=== PATIENT | male | born 1955 | race Two or more races ===

== ENCOUNTER 2016-11-09 20:57 | Emergency (ER) | payer BC ==
[~2016-11-09] VITALS: Ht 188 cm; Wt 77.1 kg
[2016-11-09 21:06] VITALS: BP 128/86
[2016-11-09] MEDS ORDERED: TDAP [DIPH/PERTUSSIS/TET] 0.5 ML VIAL IM ONE (21:34)
[2016-11-09] MEDS: TDAP [DIPH/PERTUSSIS/TET] 0.5 ML VIAL IM ONE (21:42)
[2016-11-09] MEDS: LIDOCAINE 1%-EPI 1:100,000 20 ML VIAL TP ONE (21:43)
== END 2016-11-09 22:05 | disposition home or self-care (01) ==
LOC: ER 21:03
DX: S61.411A Laceration without foreign body of right hand, initial encounter (principal); W25.XXXA Contact with sharp glass, initial encounter; Y93.G1 Activity, food preparation and clean up; Y92.89 Other specified places as the place of occurrence of the external cause; Y99.8 Other external cause status
CPT/HCPCS: 90715; A4606; A6402; Z7610

== ENCOUNTER 2019-04-22 19:53 | Emergency (ER) | payer MEDICARE, BC ==
[~2019-04-22] VITALS: Ht 188 cm; Wt 74.8 kg
--- NOTE | 2019-04-22 20:12 | NUR ---
BIBS FOR LACERATION BETWEEN RING AND MIDDLE FINGER ON L HAND
--- NOTE | 2019-04-22 20:45 | NUR ---
[facility] PEDERSON PAC AT THE BED SIDE FOR SUTURING
[2019-04-22] MEDS ORDERED: DOXYCYCLINE HYCLATE (100 MG) 100 MG TABLET PO ONE (22:00)
[2019-04-22] MEDS ORDERED: DOXYCYCLINE HYCLATE (100 MG) 100 MG TABLET ONE (22:01)
--- NOTE | 2019-04-22 22:16 | NUR ---
PT WAS PROVIDED W/ L HAND SPLINT. Patient discharged to home in stable condition. rx and Written and verbal after care instructions given. Patient verbalizes understanding of instruction.
[2019-04-22 22:18] VITALS: BP 128/85
== END 2019-04-22 22:19 | disposition home or self-care (01) ==
LOC: ER 19:54
DX: S61.412A Laceration without foreign body of left hand, initial encounter (principal); W25.XXXA Contact with sharp glass, initial encounter; Y93.E8 Activity, other personal hygiene; Y92.89 Other specified places as the place of occurrence of the external cause; Y99.8 Other external cause status
CPT/HCPCS: 12044; 73130; 99284; A6403

== ENCOUNTER 2019-05-01 13:35 | Emergency (ER) | payer MEDICARE, BC ==
[~2019-05-01] VITALS: Ht 188 cm; Wt 78.5 kg
--- NOTE | 2019-05-01 13:42 | NUR ---
JENS CALVILLO AT BEDSIDE FOR EVAL.
[2019-05-01 13:45] VITALS: BP 141/92
--- NOTE | 2019-05-01 14:00 | NUR ---
SUTURE REMOVED BY JENS SAMUEL
== END 2019-05-01 14:05 | disposition home or self-care (01) ==
LOC: ER 13:36
DX: S61.411D Laceration without foreign body of right hand, subsequent encounter (principal); X58.XXXD Exposure to other specified factors, subsequent encounter